=== PATIENT | male | born 1985 | race Caucasian/White ===

== ENCOUNTER 2021-09-22 09:29 | Emergency (ER) | payer OTHER ==
[2021-09-22 11:54] LABS: HEMOGLOBIN 16.4 gm/dl (14.0-17.5); RED BLOOD COUNT 5.41 M/UL (4.20-5.50)
[2021-09-22 13:20] LABS: BUN/CREATININE RATIO 25 (0-10)
[2021-09-22] MEDS ORDERED: GLYCERIN1 EACH PR (14:01)
[2021-09-22] MEDS ORDERED: CHRONULAC20 GM/30 M PO (14:01)
== END 2021-09-22 14:30 | disposition home or self-care (01) ==
LOC: ER1 09:29
PROVIDERS: Physician Assistant
DX: K56.41 Fecal impaction (principal); K62.5 Hemorrhage of anus and rectum; F17.290 Nicotine dependence, other tobacco product, uncomplicated; Z88.4 Allergy status to anesthetic agent
CPT/HCPCS: 80053; 81001; 83690; 85025; 99284; Q9967